=== PATIENT | female | born 1990 | race Caucasian/White ===

== ENCOUNTER 2020-02-28 16:19 | Emergency (ER) | payer BC ==
[~2020-02-28] VITALS: Ht 154.9 cm; Wt 78.9 kg
[2020-02-28 16:54] VITALS: Ht 154.9 cm; Wt 78.9 kg
[2020-02-28 17:42] VITALS: BP 121/75
== END 2020-02-28 17:42 | disposition home or self-care (01) ==
LOC: ED 16:19
DX: G44.209 Tension-type headache, unspecified, not intractable (principal)